=== PATIENT | female | born 1945 | race Caucasian/White ===

== ENCOUNTER → 2018-07-30 | Outpatient (CLI) | payer MEDICARE, BC | LOC: M.MRI 07-24 16:05 | DX: I65.21 Occlusion and stenosis of right carotid artery (principal); I63.9 Cerebral infarction, unspecified; I77.9 Disorder of arteries and arterioles, unspecified ==

== ENCOUNTER → 2018-08-22 | Outpatient (CLI) | payer MEDICARE, BC | LOC: M.ULTRA 09:34 | DX: I10 Essential (primary) hypertension (principal) ==

== ENCOUNTER → 2018-08-29 | Outpatient (CLI) | payer MEDICARE, BC ==
--- NOTE | ~2018-08-29 | EEG ---
[address] [address] EEG STUDY REPORT Name: JERZY CLEMENTS Room: [facility].#: [id number] Admission: 08/29/18 Attend Phys: Carlos De La Cruz MD Discharge: Date of : 47 Report #: [id number] THIS REPORT FOR: //name// CC: Teto De La Cruz DATE OF SERVICE: 08/29/2018 This patient is being evaluated for episodes of hand stiffness. EEG was done by placing the electrode by standard 10-20 system of electrode placement. Both referential and sequential montages were used for recording. Background activity in this patient's EEG is about 11 Hz and 30 microvolt. The patient became drowsy that is associated with bilateral slowing and vertex sharp waves. Photic stimulation was unremarkable. Throughout the record, no active epileptiform activity was noticed. IMPRESSION: This patient's EEG is unremarkable. By: [id number] De La Cruz MD /nt
== END ==
LOC: M.CRD 09:35
DX: I65.21 Occlusion and stenosis of right carotid artery (principal); E78.00 Pure hypercholesterolemia, unspecified

== ENCOUNTER 2021-08-12 15:06 | Inpatient (IN) | payer MEDICARE, BC ==
[~2021-08-12] VITALS: Ht 170.2 cm; Wt 73.5 kg
[2021-08-12 15:23] VITALS: BP 152/84
[2021-08-12] MEDS ORDERED: NORVASC 2.5 MG2.5 MG PO (15:27)
[2021-08-12] MEDS ORDERED: NORVASC 2.5 MG2.5 M1 PO (15:27)
[2021-08-12 15:43] LABS: HEMATOCRIT 40.5 % (37.0-47.0); HEMOGLOBIN 13.9 gm/dL (12.0-15.0); MCH 30.5 pg (26.0-34.0); MCHC 34.3 g/dL (28.0-37.0); MCV 88.8 fL (80.0-100.0); MPV 6.7 fl. (7.2-11.1); NUCLEATED RBCS 0 /100WBC; PLATELET COUNT* 573 thou/uL (150-400); RBC 4.56 mil/uL (4.20-5.00); RDW-CV 13.4 % (10.5-14.5); WBC 9.2 thou/uL (4.0-11.0)
--- NOTE | 2021-08-12 15:48 | EKG ---
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 : 1945 Requested By: Wolfgang Swan Order Number: [id number] MD: David Estrada Measurements Intervals Falcon Rate: 92 P: 31 VA: 169 QRS: -15 QRSD: 98 T: 57 QT: 376 QTc: 466 Interpretive Statements Sinus rhythm Left ventricular hypertrophy Anterior infarct, old Baseline wander in lead(s) II No previous ECG available for comparison Electronically Signed On 08-12-2021 15:47:58 CALENDER OPERATOR by David Estrada [email or web address] <ELECTRONICALLY SIGNED> By: David Estrada MD, [facility] 08/12/21 [id number] David Estrada MD, [facility] /EPI
[2021-08-12 15:50] LABS: CALCIUM 8.7 mg/dL (8.5-10.1); CREATININE 0.9 mg/dL (0.6-1.3); POTASSIUM 3.4 mmol/L (3.5-5.1)
[2021-08-12 16:01] LABS: ALBUMIN 2.2 g/dL (3.4-5.0); TOTAL BILIRUBIN 0.6 mg/dL (<0.1-1.0); TOTAL PROTEIN 6.8 g/dL (6.4-8.2)
[2021-08-12 16:31] LABS: ABSOLUTE LYMPHOCYTES 1.5 thou/uL (0.8-5.3); ABSOLUTE MONOCYTES 0.2 thou/uL (0.0-1.2); ABSOLUTE NEUTROPHILS 7.5 thou/uL (1.6-8.1); ATYPICAL LYMPHS 5 %; PLATELET ESTIMATE INCREASED
[2021-08-12 17:47] LABS: URINE BILIRUBIN NEGATIVE (Negative); URINE BLOOD NEGATIVE (Negative); URINE CLARITY CLEAR; URINE COLOR YELLOW; URINE GLUCOSE-RANDOM NEGATIVE (Negative); URINE KETONES NEGATIVE (Negative); URINE LEUKOCYTES-REFLEX NEGATIVE (Negative); URINE NITRITE-REFLEX NEGATIVE (Negative); URINE PROTEIN NEGATIVE (Negative); URINE SPECIFIC GRAVITY <= 1.005 (1.005-1.030); URINE UROBILINOGEN 0.2 E.U./dl (0.2-1.0)
[2021-08-12 19:50] VITALS: BP 144/65
[2021-08-12 23:40] VITALS: BP 127/72
[2021-08-13 04:00] VITALS: BP 124/55
[2021-08-13 08:07] VITALS: BP 136/67
[2021-08-13 12:18] VITALS: BP 154/80
--- NOTE | 2021-08-13 15:18 | NUR ---
SPOKE WITH PT'S DAUGHTER CONSTANTINE, WHO CAN BE REACHED AT [phone], ABOUT HER CONCERN WITH SLURRED SPEECH AT HOME SINCE 08/11. THIS RN HAS NOTICED SLOWNESS TO RESPOND WITH DIFFICULTY FINDING WORDS AT TIMES. [facility] COMPLETED AT BEDSIDE BY THIS RN WITH RESULTS OF 0. DR. SCHWARTZ INFORMED OF PREVIOUS. DR. SCHWARTZ RESPONSE WITH REQUEST FOR NEUROLOGY CONSULT.
[2021-08-13 17:34] VITALS: BP 147/66
--- NOTE | 2021-08-13 18:04 | NUR ---
C/S PLACED WITH NEUROLOGY WITH CALL BACK REQUESTING MRI BRAIN
[2021-08-13 21:30] VITALS: BP 156/75
[2021-08-14 01:00] VITALS: BP 144/63
[2021-08-14 05:00] VITALS: BP 161/81
[2021-08-14 09:00] LABS: ABSOLUTE LYMPHOCYTES 1.1 thou/uL (0.8-5.3); ABSOLUTE MONOCYTES 1.2 thou/uL (0.0-1.2); ABSOLUTE NEUTROPHILS 7.8 thou/uL (1.6-8.1); BASOPHILS 0.2 %; HEMATOCRIT 42.2 % (37.0-47.0); HEMOGLOBIN 14.2 gm/dL (12.0-15.0); LYMPHOCYTES 10.5 %; MCH 30.3 pg (26.0-34.0); MCHC 33.6 g/dL (28.0-37.0); MCV 90.3 fL (80.0-100.0); MONOCYTES 11.9 %; MPV 6.6 fl. (7.2-11.1); NUCLEATED RBCS 0 /100WBC; PLATELET COUNT* 637 thou/uL (150-400); POLYS 77.4 %; RBC 4.68 mil/uL (4.20-5.00); WBC 10.1 thou/uL (4.0-11.0)
[2021-08-14 09:16] LABS: ALBUMIN 2.4 g/dL (3.4-5.0); CALCIUM 8.5 mg/dL (8.5-10.1); CREATININE 0.7 mg/dL (0.6-1.3); TOTAL BILIRUBIN 0.6 mg/dL (<0.1-1.0); TOTAL PROTEIN 7.4 g/dL (6.4-8.2)
[2021-08-14 09:30] VITALS: BP 142/55
[2021-08-14 18:13] VITALS: BP 141/64
[2021-08-14 21:14] VITALS: BP 133/62
[2021-08-14 23:42] VITALS: BP 147/69
[2021-08-15] VITALS (7 sets, daily range): BP systolic 132–145; BP diastolic 65–78
--- NOTE | 2021-08-15 05:42 | NUR ---
RECEIVED REPORT FROM ERICA KENDALL. PT TRANSFERRED TO 114. PT A&OX4. VSS. 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 ADMISSION HISTORY & PHYSICAL ASSESSMENT COMPLETED AND CHARTED. PT ON NC 5L. PT TRACING SR ON TELE. [place] [facility] [place] [facility] CHARTED. CALL LIGHT WITHIN REACH.
[2021-08-15 10:46] LABS: ABSOLUTE LYMPHOCYTES 1.3 thou/uL (0.8-5.3); ABSOLUTE MONOCYTES 1.2 thou/uL (0.0-1.2); ABSOLUTE NEUTROPHILS 5.3 thou/uL (1.6-8.1); BASOPHILS 0.5 %; EOSINOPHILS 0.3 %; HEMATOCRIT 39.9 % (37.0-47.0); HEMOGLOBIN 13.4 gm/dL (12.0-15.0); LYMPHOCYTES 16.7 %; MCH 30.4 pg (26.0-34.0); MCHC 33.6 g/dL (28.0-37.0); MCV 90.7 fL (80.0-100.0); MONOCYTES 15.6 %; MPV 6.9 fl. (7.2-11.1); NUCLEATED RBCS 0 /100WBC; PLATELET COUNT* 607 thou/uL (150-400); POLYS 66.9 %; RDW-CV 13.8 % (10.5-14.5); WBC 7.9 thou/uL (4.0-11.0)
[2021-08-15 11:02] LABS: ALBUMIN 2.2 g/dL (3.4-5.0); CALCIUM 8.3 mg/dL (8.5-10.1); CREATININE 0.8 mg/dL (0.6-1.3); MAGNESIUM 2.3 mg/dL (1.8-2.4); POTASSIUM 3.2 mmol/L (3.5-5.1); TOTAL BILIRUBIN 0.6 mg/dL (<0.1-1.0); TOTAL PROTEIN 6.2 g/dL (6.4-8.2)
[2021-08-16 02:06] VITALS: BP 141/80
[2021-08-16 06:15] VITALS: BP 141/71
--- NOTE | 2021-08-16 07:49 | NUR ---
ASSUMED CARE OF PT AFTER REPORT AT 1930. PT A&OX4. VSS. PHYSICAL ASSESSMENT COMPLETED AND CHARTED. PT ON HFNC 5L. PT TRACING SR ON TELE. PT UPSTANDBY TO [facility]SC. FALL PRECAUTIONS IN PLACE. CALL LIGHT WITHIN REACH.
[2021-08-16 08:00] VITALS: BP 130/70
[2021-08-16 12:07] VITALS: BP 111/63
[2021-08-16 12:44] VITALS: BP 111/63
[2021-08-16] MEDS ORDERED: LEVOFLOXACIN500 MG PO (13:48)
[2021-08-16] MEDS ORDERED: BAYER CHEWABLE81 MG PO (13:48)
[2021-08-16] MEDS ORDERED: DEXAMETHASONE1 MG PO (13:48)
[2021-08-16] MEDS ORDERED: VITAMIN C1000 MG PO (13:48)
[2021-08-16] MEDS ORDERED: VITAMIN D325 MC2 PO (13:48)
--- NOTE | 2021-08-16 14:48 | NUR ---
CM ASSESSMENT ASSESSMENT COMPLETED VIA PHONE WITH PT'S (MAKSIM CLEMENTS - [phone]). PT RESIDES WITH IN HOME WITH ONE STEP TO ENTER HOME AND TWO STEPS TO ENTER KITCHEN. PT DOES NOT USUALLY USE ANY DME, BUT PT'S OBTAINED A WALKER FOR PT THE SAME DAY SHE ADMITTED TO [facility] DUE TO PT BEING ABNORMALLY SHAKY. PT IS INDEPENDENT WITH ADLS. PT HAS NO HX OF SKILLED, REHAB, OR HH. PT MED CLEAR TO DC HOME WITH HH. HH TO BE PROVIDED BY [facility] ([phone]). PT PENDING REST/EX TEST TO DETERMINE IF HOME O2 IS NEEDED. CM TO FOLLOW.
[2021-08-16 19:10] VITALS: BP 111/63
== END 2021-08-16 20:15 | disposition home health service (06) | DRG 177 ==
LOC: M.ERS 15:06 → M.TBA-ER 15:56 → M.ORTHSURG 08-14 23:48
PROVIDERS: Family Medicine; Internal Medicine; ADMIT Internal Medicine; ATTEND Internal Medicine
PROC: XW033E5 Introduction of Remdesivir Anti-infective into Peripheral Vein, Percutaneous Approach, New Technology Group 5 (ICD-10-PCS; principal; 2021-08-12)
PROC: 5A0935A Assistance with Respiratory Ventilation, Less than 24 Consecutive Hours, High Flow/Velocity Cannula (ICD-10-PCS; 2021-08-15)
PROC: 5A0935A Assistance with Respiratory Ventilation, Less than 24 Consecutive Hours, High Flow/Velocity Cannula (ICD-10-PCS; 2021-08-16)
DX: U07.1 COVID-19 (principal); J96.01 Acute respiratory failure with hypoxia; J12.82 Pneumonia due to coronavirus disease 2019; I10 Essential (primary) hypertension; Z88.0 Allergy status to penicillin; Z86.73 Personal history of transient ischemic attack (TIA), and cerebral infarction without residual deficits